=== PATIENT | female | born 1955 | race Caucasian/White ===

== ENCOUNTER 2018-05-20 09:22 | Emergency (ER) | payer OTHER, SELFPAY ==
[2018-05-20 09:22] VITALS: BP 162/95; PULSE 76; RESP 18; TEMP 36.3; O2SAT 98; BMI 28.6
--- NOTE | 2018-05-20 09:37 | CT_ITS ---
STUDY: CT BRAIN WITHOUT CONTRAST REASON FOR EXAM: Female, 62 years old. Visual changes in the right eye. Hypertension. RADIATION DOSAGE (If Supplied By Facility): CTDIvol = ( 60.81 ) mGy, DLP = ( 998.67 ) mGycm TECHNIQUE: Transaxial CT imaging of the brain was performed without administration of intravenous contrast material. Individualized dose optimization techniques were used for this CT. COMPARISON: None. FINDINGS: Normal soft tissue structures. There is 9.3 mm by 8mm ossification arising from the inner plate of the left posterior parietal bone. This may represent either an exostosis or possible calcified meningioma. No surrounding edema or mass effect is seen. Normal size ventricles and extra-axial spaces for the patient's age. Normal white matter tracts of the cerebral hemispheres. Normal basal ganglia and thalami. Normal brainstem. Normal cerebellum. There is no intracranial hemorrhage. There are no findings of an acute ischemic infarction. Atherosclerotic calcification of the cavernous portions of the internal carotid arteries bilaterally. Normal visualized paranasal sinuses. CT/Brain/Head without Contrast IMPRESSION: 9.3 mm x 8 mm ossification arising from the inner plate of the left posteroparietal bone as described. This may represent a calcified meningioma. No other abnormality is seen. Electronically Signed: Brent Garcia MD at 10:35 EST , Service support ,
--- NOTE | 2018-05-20 09:37 | EKG12_ITS ---
Test Reason : HYPERTENSION Blood Pressure : / mmHG Vent. Rate : 067 BPM Atrial Rate : 067 BPM P-R Int : 130 ms QRS Dur : 082 ms QT Int : 384 ms P-R-T Axes : 045 029 028 degrees QTc Int : 405 ms Normal sinus rhythm Normal ECG Confirmed by YANNICK OCONNOR, BONG ([id number]), offline editor ASIYA KOHLER ([id number]) on 05/22/2018 3:09:47 PM Referred By: ALBERTO Confirmed By:BONG LANIER MD
--- NOTE | 2018-05-20 09:37 | RAD_ITS ---
STUDY: X-RAY CHEST REASON FOR EXAM: Female, 62 years old. Hypertension. TECHNIQUE: Single AP portable view of the chest. COMPARISON: Comparison is made with prior study dated September 06, 2014. FINDINGS: EKG electrodes are seen. The lungs are clear and expanded. Scattered calcified granulomas. There is no demonstrated pleural abnormality. Normal size heart. Normal mediastinum and ann. Normal visualized pulmonary arteries. Normal visualized aortic arch and descending thoracic aorta. Normal visualized thoracic spine. Normal visualized ribs, clavicles, and shoulders. There is no demonstrated abnormality of the visualized soft tissue structures of the upper abdomen. RAD/Chest 1 View IMPRESSION: Normal x-ray examination of the chest. Electronically Signed: Brent Garcia MD at 10:57 EST , Service support ,
[2018-05-20 09:48] VITALS: O2SAT 98
[2018-05-20 09:58] LABS: Absolute Lymphocyte Count 1.49 X10^3/ul (0.83-4.51); Absolute Neutrophil Count 1.6 X10^3/uL (2.0-7.7); Basophil# 0.01 X10^3/uL; Basophil% 0.3 % (0-1); Eosinophils% 2.8 % (0-5); Hematocrit 44.1 % (37-47); Hemoglobin 14.6 g/dl (12.0-15.0); Lymphocyte # 1.49 X10^3/ul (4.0); Lymphocyte % 41.3 % (19-41); Mean Corp Hgb Conc 33.1 g/gl (32-36); Mean Corpuscular Hgb 28.9 pg (27.0-32.0); Mean Corpuscular Volume 87.3 fL (81-99); Mean Platelet Vol. 9.5 fl (6.2-12.0); Monocyte# 0.37 X10^3/uL; Monocyte% 10.2 % (0-10); Neutrophil # 1.64 X10^3/uL (2.7-7.7); Neutrophil % 45.4 % (47-70); POSITIVE COUNT NO; POSITIVE DIFFERENTIAL NO; POSITIVE MORPHOLOGY NO; Platelet Count 255 K/mm3 (150-450); RBC Distribution Width CV 13.4 % (11.6-14.6); RBC Distribution Width SD 42.4 fl (35.1-43.9); Red Blood Count 5.05 M/mm3 (4.2-5.4); White Blood Count 3.6 K/mm3 (4.4-11.0)
[2018-05-20 10:01] VITALS: BP 142/95; PULSE 68; RESP 14; O2SAT 92
[2018-05-20 10:04] LABS: International Normalized Ratio 1.1; Prothrombin Time (Protime)PT. 14.1 SECONDS (11.7-14.9)
[2018-05-20 10:05] LABS: Partial Thromboplast Time 33.2 Seconds (24.1-36.2)
[2018-05-20 10:05] LABS: Bedside Glucose 98 mg/dL (70-110)
[2018-05-20 10:15] LABS: Anion Gap 11 (5-15); BUN 19 mg/dL (7-18); BUN/Creat Ratio 17.6 RATIO (10-20); Chloride 108 mmol/L (98-107); Creatinine, Serum 1.08 mg/dL (0.55-1.02); EST Glomerular Filtration Rate 55 mL/min (>60); Est Glom Filt Rate - Afr Amer 66 mL/min (>60); Estimated Creatinine Clearance 45.82 ml/min; Glucose 128 mg/dL (74-106); Potassium 3.6 mmol/L (3.5-5.1); Sodium Level 144 mmol/L (136-145)
--- NOTE | 2018-05-20 10:52 | ED.VISSUMM ---
- ER Visit Summary Date of Service: 05/20/18 Chief Complaint: Blood pressure high History of Present Illness: The patient is a 62 F with elevated blood pressures for 3 days. Her maximum systolic blood pressure was 152 and her maximum diastolic pressure was 102. She has no history of high blood pressure and takes no medication for high blood pressure. She was encouraged to come in to be evaluated today because she is also had a spot in her right thigh. She says this affects her right eye only and that her left eye is normal. She has a dark spot in her right visual field in the right eye. She has no prior history of this. This has been going on for about 4 days. Denies headaches. Denies trauma. Denies any other neurologic symptoms. Denies chest pain or shortness of breath. Denies blood thinner use. Physical Examination: Blood pressure 162/95. Otherwise vitals unremarkable. Afebrile. Gross exam shows mild ptosis on the right side. Pupils are round and reactive, symmetric. Funduscopic exam was limited as she was not dilated, and she was moving frequently. I did see a dark spot on her right neck, but could not get it completely and focus and then could not find it again because of patient movement. Her visual acuity was 20/40 in the right and left eyes individually and 20/30 bilaterally. Cranial nerves otherwise unremarkable. Good strength and sensation and cerebellar testing. Test Results: EKG showed sinus rhythm at a rate of 67. Chest x-ray was read by me. It was unremarkable. Official read is pending. CT brain showed a left posterior calcified meningioma. White count 3.6, chloride 108, glucose 128, BUN 19, creatinine 1.08. Troponin level. Coags normal. Emergency Department Course and Treatment: Visual acuity was done as above. Patient was monitored. I tried to reexamine her eyes several times, but had difficulty because of motion and lack of dilation. Her workup was all fairly unremarkable. Repeat blood pressure was 125 systolic. I do not believe that her pressures have been high enough to cause visual changes, but she might have some chronic hypertension which has affected her eye. I spoke with Dr. Pope and he has appointments available to see the patient later today. She should call the office and she can be seen around 1 PM. She should return for any new or worsening symptoms, visual cuts, speech changes, facial droop, weakness. Return for chest pain or shortness of breath. Otherwise follow-up with ophthalmology and her primary care doctor. Treatment Plan: As above Disposition: Discharge Impression: 1. Right eye vision changes 2. High blood pressure This note was generated with [employer] dictation software. It may contain incorrect words, spelling, and punctuation that were not noted in review of the chart prior to signing ED Disposition - Plan for ED Patient: Chief Complaint: Hypertension Referrals: Elza White MD [Primary Care Provider] -
--- NOTE | 2018-05-20 10:57 | ED.DEP ---
ED Disposition - Plan for ED Patient: Chief Complaint: Hypertension Instructions: ED Hypertension Poss Referrals: Elza White MD [Primary Care Provider] - Wilman Pope MD [STAFF PHYSICIAN] - (call for an appointment to be seen today )
[2018-05-20 11:05] VITALS: BP 147/91; PULSE 63; RESP 18; O2SAT 94
== END 2018-05-20 11:06 | disposition home or self-care (01) ==
PROVIDERS: Emergency Provider Emergency Medicine; Family Provider Internal Medicine; PCP Internal Medicine
DX: H53.8 Other visual disturbances (principal); I10 Essential (primary) hypertension; H02.401 Unspecified ptosis of right eyelid; D32.9 Benign neoplasm of meninges, unspecified
CPT/HCPCS: 70450; 71045; 80048; 82962; 84484; 85025; 85610; 85730; 93005; 99285; A4216

== ENCOUNTER → 2023-03-12 | Outpatient (CLI) | payer MEDICARE, MEDICAID, SELFPAY ==
[2023-03-12 17:05] LABS: Absolute Lymphocyte Count 1.86 X10^3/uL (0.83-4.51); Absolute Neutrophil Count 3.3 X10^3/uL (2.0-7.7); Basophil# 0.02 X10^3/uL; Basophil% 0.3 % (0-1); Eosinophils% 1.7 % (0-5); Hematocrit 44.9 % (37-47); Hemoglobin 14.4 g/dL (12.0-15.0); Lymphocyte # 1.86 X10^3/ul (0.83-4.51); Mean Corp Hgb Conc 32.1 g/dL (32-36); Mean Corpuscular Hgb 28.3 pg (27.0-32.0); Mean Corpuscular Volume 88.4 fL (81-99); Mean Platelet Vol. 10.3 fl (6.2-12.0); Monocyte# 0.55 X10^3/uL; Monocyte% 9.5 % (0-10); NRBC Flagged by Analyzer 0 % (0-5); Neutrophil # 3.27 X10^3/uL (2.7-7.7); Neutrophil % 56.2 % (47-70); Platelet Count 262 K/mm3 (150-450); RBC Distribution Width CV 13.2 % (11.6-14.6); RBC Distribution Width SD 43.2 fl (35.1-43.9); Red Blood Count 5.08 M/mm3 (4.2-5.4); White Blood Count 5.8 K/mm3 (4.4-11.0)
[2023-03-12 17:15] LABS: ALB/GLOB Ratio 0.8 RATIO (0.9-2.4); AST(SGOT) 33 U/L (15-37); Alanine Aminotransfer ALT/SGPT 61 U/L (13-56); Albumin, Serum 3.5 g/dL (3.2-5.0); Alkaline Phosphatase 90 U/L (45-117); Anion Gap 8 (5-15); BUN 17 mg/dL (7-18); BUN/Creat Ratio 17.5 RATIO (10-20); Calcium,Total 8.8 mg/dL (8.5-10.1); Chloride 105 mmol/L (98-107); Cholesterol 203 mg/dL (200); Creatinine, Serum 0.97 mg/dL (0.55-1.02); EST Glomerular Filtration Rate 61 mL/min (>60); Est Glom Filt Rate - Afr Amer 74 mL/min (>60); Globulin 4.2 g/dL (2.2-4.2); Glucose 101 mg/dL (74-106); High Density Lipoprotein 55 mg/dL; Potassium 3.9 mmol/L (3.5-5.1); Protein, Total 7.7 g/dL (6.4-8.2); Sodium Level 141 mmol/L (136-145); Triglycerides 99 mg/dL; Very Low Density Lipoprotein 20 mg/dL (5-40)
== END | disposition home or self-care (01) ==
LOC: BIMLAB 14:56
PROVIDERS: PCP Internal Medicine; Referring Provider Internal Medicine; Visit Provider Internal Medicine
DX: I10 Essential (primary) hypertension (principal)
CPT/HCPCS: 36415; 80053; 80061; 85025

== ENCOUNTER → 2023-04-24 | Outpatient (CLI) | payer MEDICARE, MEDICAID, SELFPAY ==
--- NOTE | 2023-04-24 14:15 | BI_ITS ---
MAMMOGRAPHY - BILATERAL SCREENING REASON FOR EXAM: Female, 67 years old. Routine annual screening examination. PERTINENT HISTORY: Sister with breast cancer. TECHNIQUE: Digital bilateral breast rosario (3D mammographic acquisition) in the CC and MLO projections. 2-D mediolateral oblique (MLO) and craniocaudad (CC) views of both breasts were obtained. CAD: Full Field Digital Mammography with Computer Added Detection was performed. COMPARISON: Comparison is made with prior outside examination dated March 22, 2019. FINDINGS: Breast Composition: The breasts are heterogeneously dense, which may obscure small masses. There are no dominant masses or suspicious calcifications. Stable small benign-appearing bilateral axillary lymph nodes. No other significant abnormalities are identified. There has been no significant change since the prior study. BI/SCRN MAMM (CAD)W/ROSARIO BILAT IMPRESSION: Stable bilateral screening mammogram. Yearly follow-up mammogram recommended. (A) ASSESSMENT CATEGORY: BIRADS Category 2: Benign. A letter regarding these results will be sent to the patient by the facility within 30 days. Approximately 10% of breast cancers are not detected by mammography. A normal mammogram should not delay biopsy of a clinically suspicious abnormality. [id number] Electronically Signed: Brent Garcia MD at 14:26 EST ,
--- NOTE | 2023-04-24 14:20 | BD_ITS ---
STUDY: DUAL ENERGY X-RAY ABSORPTIOMETRY / DXA REASON FOR EXAM: Female, 67 years old. Post Menopausal TECHNIQUE: Bone Mineral Density (BMD) measurements of lumbar spine and bilateral hips were obtained. COMPARISON: None. FINDINGS: Lumbar Spine (L1-L4): g/cm2 (0.780) / T-score (-2.4) / Z-score (-0.6) Findings are suggestive of osteopenia with a high fracture risk. Left Femur Total: g/cm2 (0.867) / T-score (-0.6) / Z-score (0.6) Left Femoral Neck: g/cm2 (0.661) / T-score (-1.7) / Z-score (-0.1) Right Femur Total: g/cm2 (0.934) / T-score (-0.1) / Z-score (1.2) Right Femoral Neck: g/cm2 (0.748) / T-score (-0.9) / Z-score (0.6) BD/Dexa Bone Density Study IMPRESSION: The patient is considered osteopenic as outlined below according to World Markos Organization (WHO) criteria with a high fracture risk. Reference Information: The T-score is the number of standard deviations above or below the standard which is normal for young adults at their peak bone mineral density. The World Health Organization (WHO) interprets the T-scores as follows: Above -1 Normal bone density Between -1 and -2.5 Osteopenia Equal to / or below -2.5 Osteoporosis As a practical clinical guideline, osteopenia may be graded as follows: Mild -1 through -1.5 Moderate -1.6 through -2.0 Severe -2.1 through -2.4 The Z-score is the number of standard deviations above or below age-matched controls. A Z-score of less than -1.5 would be considered abnormal. References: 1. NIH Osteoporosis and Related Bone Diseases www osteo.org 2. International Society for Clinical Densitometry www iscd.org 3. National Osteoporosis Foundation www nof.org Electronically Signed: Brent Garcia MD at 15:17 EST ,
== END | disposition home or self-care (01) ==
LOC: OPBD 14:15
PROVIDERS: PCP Internal Medicine; Referring Provider Internal Medicine; Visit Provider Internal Medicine
DX: Z12.31 Encounter for screening mammogram for malignant neoplasm of breast (principal); Z80.3 Family history of malignant neoplasm of breast; Z78.0 Asymptomatic menopausal state
CPT/HCPCS: 77063; 77067; 77080

== ENCOUNTER 2023-06-05 15:59 | Emergency (ER) | payer MEDICARE, MEDICAID, SELFPAY ==
[2023-06-05 16:00] VITALS: BP 151/98; PULSE 120; RESP 18; TEMP 36.4; O2SAT 98; BMI 32.9
--- NOTE | 2023-06-05 16:49 | EX.ED.DYSGE1 ---
HPI <PIPPA Schofield - Last Filed: 06/05/23 18:30> History of Present Illness Chief Complaint: Fall Narrative Narrative: Patient is a 67-year-old female with no significant medical history presents to the emergency department after mechanical fall backwards towards 2 steps. Patient fell turning her body, landing on her knees as well as her right hand. Patient has pain to both knees as well as her right hand and wrist. She denies any head or neck injury. Denies any alcohol abuse. Patient states this happened approximately 45 minutes ago. PFSH <PIPPA Schofield - Last Filed: 06/05/23 18:30> [facility] Medical History (Updated 06/05/23 @ 19:[address] Unruly Her MD) Back pain Colon cancer screening Diverticulitis Head ache Health care maintenance Hypertension Vision problems Home Medications multivitamin with folic acid 400 mcg tablet (Thera) 1 tab PO DAILY 05/20/18 [History Last Taken Unknown] turmeric 400 mg capsule 400 mg PO DAILY 05/20/18 [History Last Taken Unknown] vit B complex-folic acid 400 mcg-herbal complex no.288 2.5 mg tablet (Balanced B-50 (with alfalfa blend)) 1 ea PO DAILY 05/20/18 [History Last Taken Unknown] lrbwdul-kdhwgihqc-kgcw 333 mg-133 mg-5 mg tablet tab PO 02/28/23 [History Last Taken Unknown] govana PO 02/28/23 [History Last Taken Unknown] vision formula 50 + PO 02/28/23 [History Last Taken Unknown] Allergy/AdvReac Type Severity Reaction Status Date / Time chocolate flavor Allergy Mild Hives Verified 06/05/23 16:00 orange Allergy Mild Hives Verified 06/05/23 16:00 Family History (Updated 05/23/23 @ 15:11 by Moni Collado) Father Alcoholism Acute arthritis Sister Cancer breast, cervical Hypertension Aunt Cancer cervical, Diabetes Colon cancer Mother Diabetes Grandfather Diabetes CVA (cerebral vascular accident) Surgical History (Updated 05/23/23 @ 15:11 by Moni Collado) Hx of colonoscopy Tubal ligation status Social History (Updated 05/23/23 @ 15:12 by Moni Colaldo) current occupational status: retired Smoking Status: Never smoker alcohol intake: never substance use type: does not use frequency: 3-4 times per week ROS <PIPPA Schofield - Last Filed: 06/05/23 18:30> ROS ED ROS Narrative Constitutional: Negative for fever, chills, weight loss, weakness Eyes: Negative for vision loss, vision change, double vision ENT: Negative for any sore throat, ear pain, congestion Cardiovascular: Negative for any chest pain, tightness, palpitations Respiratory: Negative for any cough, sputum production, hemoptysis, dyspnea, dyspnea on exertion, orthopnea Gastrointestinal: Negative for any abdominal pain, nausea, vomiting, diarrhea, constipation, blood in stool, blood in vomit : Negative for any urinary frequency, dysuria, retention, blood in urine Muscle skeletal: Negative for any neck pain, back pain. Positive bilateral knee pain, right wrist pain Neurological: Negative for any headache, syncope, dizziness Skin: Negative for any rashes, itching, abrasions, lacerations Psychiatric: Negative for any depression, anxiety, stress, suicidal ideation, homicidal ideation Hematologic: Negative for any excessive bruising, easy bleeding EXAM <PIPPA Schofield - Last Filed: 06/05/23 18:30> Physical Exam Narrative Exam Narrative: Vital signs reviewed. Patient appears to be in slight discomfort. HEET: Head normocephalic atraumatic, TMs clear bilaterally. Posterior pharynx is clear, moist mucous membranes. Nares clear bilaterally. Pupils equal round reactive to light. Negative for any hemotympanum or septal hematoma. Neck: Supple with no lymphadenopathy or tenderness. No signs of meningismus. Cardiac: Regular rate and rhythm no murmurs gallops or rubs, equal peripheral pulses bilaterally. Respiratory: Lungs clear to auscultation bilaterally. No chest tenderness. Abdomen: Soft, nontender, nondistended. No abdominal bruit or pulsatile masses. No hepatosplenomegaly Extremities: Patient's right knee does show some ecchymosis, edema to the inferior patella, pain on palpation. Intact extensor mechanism. However pain on palpation to the proximal tibial head. Patient's left knee appears less injured however does have pain with patella. Patient's right wrist has some edema, ecchymosis along the radial aspect just below the thumb joint. Worsening pain with flexion extension. +2 radial pulse. Neuro: Cranial nerves II through XII intact, no focal neurological deficits. Skin: Clean dry and intact with no rash, purpura, petechiae, vesicles or pustules. Backs/flank: No CVA tenderness, no midline spinal tenderness, no deformity. Psych: Normal mood and affect. No SI, HI or acute psychosis. Const Vital Signs: 06/05/23 16:00 06/05/23 16:50 Temperature 97.5 F L Temperature Source Temporal Pulse Rate 120 H Respiratory Rate 18 Respiratory Effort Normal Respiratory Depth Normal Respiratory Pattern Normal Blood Pressure 151/98 H Blood Pressure Mean 115 Pulse Ox 98 Oxygen Delivery Method Room Air <Dr. Unruly Her MD - Last Filed: 06/05/23 19:03> Physical Exam Const Vital Signs: 06/05/23 16:00 06/05/23 16:50 Temperature 97.5 F L Temperature Source Temporal Pulse Rate 120 H Respiratory Rate 18 Respiratory Effort Normal Respiratory Depth Normal Respiratory Pattern Normal Blood Pressure 151/98 H Blood Pressure Mean 115 Pulse Ox 98 Oxygen Delivery Method Room Air MDM <PIPPA Schofield - Last Filed: 06/05/23 18:30> MDM Radiography Diagnostic Testing: Clinical Impression(s) from Imaging Studies Knee X-Ray 06/05/23 17:10 IMPRESSION: Mild degenerative change. No acute fracture or other significant bony pathology Electronically Signed: Wilman Bravo MD at 17:54 EST Reading Location ID and State: [address] [place] [address] Tel [phone], Service support , Knee X-Ray 06/05/23 17:10 IMPRESSION: Degenerative changes. No acute fracture or other significant bony pathology Electronically Signed: Wilman Bravo MD at 17:51 EST Reading Location ID and State: [facility] / [place] Tel [phone], Service support , Wrist X-Ray 06/05/23 17:10 IMPRESSION: Mild degenerative change. No acute fracture or other significant bony pathology Electronically Signed: Wilman Bravo MD at 17:52 EST , Treatment and Re-Evaluation :: Differential diagnosis includes however is not limited to: Patellar fracture, tibial fracture, knee sprain, wrist sprain, distal radial fracture. Patient appears to be in no obvious respiratory distress, patient does appear to be in slight pain from the fall. She will be given oral Percocet. Patient will receive x-rays 4 view bilateral knees. Wrists x-ray. All radiologic examinations were read, reviewed by the emergency department attending. From these reads, a plan of care will be put in place. Patient was given Percocet, patient did receive x-rays of her knees, as well as right wrist.Patient's x-ray of both knees was negative for any acute process. This was inter by the ER physician. X-ray of the wrist showed mild degenerative changes, no acute fracture. At this time, patient be diagnosed with fall, bilateral knee contusions, right wrist sprain. <Dr. Unruly Her MD - Last Filed: 06/05/23 19:03> [facility] Narrative Medical decision making narrative: I have personally performed a face to face assessment of the patient and have reviewed the JUNAID Note. I performed a substantive portion of the visit including all aspects of the following. My ocampo findings include: History is [67-year-old female tripped and fell at home landing on hard tile injuring both knees and her right wrist. Did not hit her head. No LOC. No blood thinners. Denies recent illness. Denies other complaints.] Exam is [well-appearing 67-year-old female vital signs stable afebrile. H EENT exam unremarkable atraumatic. Pupils round reactive light. Nontender. Neck nontender. Back and spine nontender. No signs of trauma. Lungs clear. Heart regular rhythm rate about 100 no murmur. Chest wall and ribs nontender. Abdomen soft nontender. Moving all 4 extremities. No deformity. Tenderness right wrist and dorsal metacarpals. No deformity. Able to do flexion extension. Able to open close her hand. Normal sensation. Forearm, elbow and upper arm are nontender. Left upper extremity unremarkable. Both lower extremities she has contusions and mild bruising to both knees. She is able to flex and extend both knees. Ligaments Intact. No significant effusions. Dorsi and plantarflexion intact. Neurologically she is awake and alert no focal motor deficits.] Medical Decision Making [x-rays of the right wrist and both knees show chronic changes no acute process. Patient is comfortable being discharged home. Ice and Tylenol.] Other additions or changes: [None] History & Record Review Discussion w/independent historian: Patient and Family Radiography Diagnostic Testing: Clinical Impression(s) from Imaging Studies Knee X-Ray 06/05/23 17:10 IMPRESSION: Mild degenerative change. No acute fracture or other significant bony pathology Electronically Signed: Wilman Bravo MD at 17:54 EST , Knee X-Ray 06/05/23 17:10 IMPRESSION: Degenerative changes. No acute fracture or other significant bony pathology Electronically Signed: Wilman Bravo MD at 17:51 EST , Wrist X-Ray 06/05/23 17:10 IMPRESSION: Mild degenerative change. No acute fracture or other significant bony pathology Electronically Signed: Wilman Bravo MD at 17:52 EST , Right knee x-ray 4 views interpreted myself and radiologist shows no acute abnormality. No fracture no dislocation. Left knee x-ray 4 views interpreted both by myself and the radiologist shows no acute abnormality. Chronic changes. No fracture or dislocation. Right wrist x-ray 3 views are by myself and the radiologist shows no acute abnormality. No fracture or dislocation. Discharge Plan Triage Chief Complaint: Fall ED Midlevel Provider: Jeb Temple ED Provider: Unruly Her Dx/Rx/DC Orders Clinical Impression: Contusion of knee, Fall, Right wrist sprain, Contusion of knee, left, Contusion of knee, right Instructions: Bruises (Contusions), ED Contusion, Lower Extremity, ED Wrist Sprain Prescriptions: No Action govana PO Patient Comments: 16 fruits sdavoll-[id number]-eeaj 333-133-5 mg tablet PO vision formula 50 + PO multivitamin with folic acid [Thera] 1 TABLET tablet 1 tab PO DAILY turmeric 400 MG capsule 400 mg PO DAILY vit B complx-folic ac-herb 288 [Balanced B-50 (with alfalfa)] 1 EACH tablet 1 ea PO DAILY Primary Care Provider: Alcira Ponce Referrals: Alcira Ponce MD [Primary Care Provider] - 1 Week if not improving Activity Restrictions/Additional Instructions: Ice and elevate the right wrist to decrease pain and swelling. Ice to both knees. Tylenol for pain. This should progressively improve. Your x-rays did not show any broken bones. If the pain is not improving over the next week follow-up with your doctor sometimes had to get a repeat x-ray. Disposition Disposition: Home, Self Care
[2023-06-05] MEDS: Oxycodone/Apap 5/325 Tablet PO (16:52)
--- NOTE | 2023-06-05 17:10 | RAD_ITS ---
STUDY: X-RAY - RIGHT KNEE REASON FOR EXAM: Female, 67 years old. fall TECHNIQUE: 4 view(s) of the knee. COMPARISON: None. FINDINGS: Normal visualized distal femur. Normal visualized proximal tibia and fibula. Normal proximal tibiofibular articulation. Narrowed medial femorotibial compartment. Normal lateral femorotibial compartment. Normal patellofemoral articulation. Mild suprapatellar spurring The soft tissue structures are unremarkable. RAD/Knee 4 or More Views IMPRESSION: Mild degenerative change. No acute fracture or other significant bony pathology Electronically Signed: Wilman Bravo MD at 17:54 EST Reading Location ID and State: [address] [place] [address] Tel , Service support ,
--- NOTE | 2023-06-05 17:10 | RAD_ITS ---
STUDY: X-RAY - LEFT KNEE REASON FOR EXAM: Female, 67 years old. FALL TECHNIQUE: 4 view(s) of the knee. COMPARISON: None. FINDINGS: Normal visualized distal femur. Normal visualized proximal tibia and fibula. Normal proximal tibiofibular articulation. Narrowed medial femorotibial compartment with minor subchondral cystic changes. Normal lateral femorotibial compartment. Normal patellofemoral articulation. The soft tissue structures are unremarkable. RAD/Knee 4 or More Views IMPRESSION: Degenerative changes. No acute fracture or other significant bony pathology Electronically Signed: Wilman Bravo MD at 17:51 EST Reading Location ID and State: [address] [place] [address] Tel , Service support ,
--- NOTE | 2023-06-05 17:10 | RAD_ITS ---
STUDY: X-RAY - RIGHT WRIST REASON FOR EXAM: Female, 67 years old. fall TECHNIQUE: 3 view(s) of the wrist were obtained. COMPARISON: None. FINDINGS: Normal visualized distal radius and ulna. Narrowed radiocarpal articulation. Normal distal radioulnar articulation. Normal carpal bones. Normal carpal articulations. Normal carpometacarpal articulation of the thumb. Normal second through fifth carpometacarpal articulations. Normal visualized metacarpal bones. The soft tissue structures are unremarkable. RAD/Wrist min 3 Views IMPRESSION: Mild degenerative change. No acute fracture or other significant bony pathology Electronically Signed: Wilman Bravo MD at 17:52 EST ,
[2023-06-05 19:10] VITALS: BP 134/67; PULSE 77; RESP 18; TEMP 36.1; O2SAT 98
== END 2023-06-05 19:11 | disposition home or self-care (01) ==
PROVIDERS: Emergency Provider Emergency Medicine; PCP Internal Medicine; Visit Provider Emergency Medicine
DX: S80.02XA Contusion of left knee, initial encounter (principal); S63.91XA Sprain of unspecified part of right wrist and hand, initial encounter; S80.01XA Contusion of right knee, initial encounter; I10 Essential (primary) hypertension; W01.10XA Fall on same level from slipping, tripping and stumbling with subsequent striking against unspecified object, initial encounter
CPT/HCPCS: 73110; 73564; 99282

== ENCOUNTER 2023-07-08 12:52 | Day surgery (SDC) | payer MEDICARE, MEDICAID, SELFPAY ==
[2023-07-08 13:13] VITALS: BP 162/77; PULSE 95; RESP 18; TEMP 36.6; O2SAT 96; BMI 32.1
[2023-07-08] MEDS: Lactated Ringers 1,000 ML 15 ML IV (13:23)
--- NOTE | 2023-07-08 15:51 | HP.PCM_ITS ---
HPI - General General Date of Admission: 07/08/23 Date of Service: 07/08/23 Chief Complaint: Family history of colon cancer HPI Narrative ANGELICA WILBURN, is a 68 F who presents today for screening colonoscopy. She had a colonoscopy back in 2019 which was normal. She has a strong family history of colon cancer in multiple family members. She does not have any personal history of colon cancer. She is not any chest pain or shortness of breath. She denies any nausea vomiting diarrhea. She does not take any medicines on a daily basis. Overall she is in very good health. [facility] Medical History (Updated 07/04/23 @ 09:20 by Louisa Rodas) Back pain Colon cancer screening Fibromyalgia Health care maintenance History of pain when walking Hypertension Leg cramps Non-smoker Post-menopausal Home Medications multivitamin with folic acid 400 mcg tablet (Thera) 1 tab PO DAILY 05/20/18 [History Last Taken Unknown] turmeric 400 mg capsule 400 mg PO DAILY 05/20/18 [History Last Taken Unknown] vit B complex-folic acid 400 mcg-herbal complex no.288 2.5 mg tablet (Balanced B-50 (with alfalfa blend)) 1 ea PO DAILY 05/20/18 [History Last Taken Unknown] [id number] 333 mg-133 mg-5 mg tablet 1 tab PO DAILY 02/28/23 [History Last Taken Unknown] vision formula 50 + 1 tab PO DAILY 02/28/23 [History Last Taken Unknown] Allergy/AdvReac Type Severity Reaction Status Date / Time chocolate flavor Allergy Mild Hives Verified 07/08/23 13:13 orange Allergy Mild Hives Verified 07/08/23 13:13 Family History Father Alcoholism Acute arthritis Sister Cancer breast, cervical Hypertension Aunt Cancer cervical, Diabetes Colon cancer Mother Diabetes Grandfather Diabetes CVA (cerebral vascular accident) Surgical History (Updated 07/04/23 @ 09:20 by Louisa Rodas) Hx of colonoscopy Hx of tubal ligation Hx of wisdom tooth extraction Social History current occupational status: retired Smoking Status: Never smoker alcohol intake: never substance use type: does not use frequency: 3-4 times per week ROS Review of Systems ROS Unobtainable: other Constitutional Constitutional: Denies fatigue, fever(s), poor appetite, weight gain or weight loss ENT HEENT: Denies mouth lesions Cardiovascular Cardiovascular: Denies abdominal bloating, abdominal edema or abdominal pain Respiratory/Chest Respiratory/Chest: Denies change in mental status, change in phlegm color, chest congestion or chest tightness Gastrointestinal Gastrointestinal: Denies belching, bloating, change in bowel habits, change in stool character, chewing difficulty, coffee ground emesis, constipation, cramping, diarrhea, dyspepsia, dysphagia, early satiety, excessive flatus, fecal incontinence, heartburn, hematemesis, hematochezia, hemorrhoids, loose stools, melena, nausea, odynophagia, rectal bleeding, tenesmus, vomiting or weight changes Genitourinary Genitourinary: Denies abdominal discomfort, burning urination or itching Musculoskeletal Musculoskeletal: Reports as per HPI; Denies muscle weakness or myalgias Integumentary Integumentary: Denies jaundice Neurologic Neurologic: Denies lack of coordination or weakness Psychiatric Psychiatric: Denies confusion, depression, memory loss, mood swings, paranoia or suicidal ideation Endocrine Endocrinology: Denies systems reviewed and no addt'l complaints, except as documented Hematologic/Lymphatic Hematologic/Lymphatic: Denies anemia, easy bleeding, easy bruising or lymphadenopathy Allergic/Immunologic Allergic/Immunologic: Denies systems reviewed and no addt'l complaints, except as documented Vital Signs Vital Signs Vital Signs: 07/08/23 13:13 07/08/23 13:13 Temperature 97.8 F Temperature Source Temporal Pulse Rate 95 Respiratory Rate 18 Respiratory Pattern Normal Blood Pressure 162/77 H Blood Pressure Mean 105 Blood Pressure Source Monitor Blood Pressure Position Sitting Blood Pressure Location Left Arm Pulse Ox 96 Oxygen Delivery Method Room Air Weight Weight: 180 lb 15.992 oz Body Mass Index (BMI) 32.1 Physical Exam Const alert General Appearance: cooperative Orientation / Consciousness: oriented to person HEENT hearing grossly normal bilaterally Head and Scalp: normal to inspection Face and Sinus: face symmetric Nose: external nose normal Mouth: oral and palatal mucosa normal Eyes conjunctivae normal General Eye: normal appearance of both eyes Neck full ROM General: normal visual inspection Lymph Lymphatic: no lymphadenopathy noted Chest inspection of chest normal and palpation of chest normal Chest: symmetrical chest wall rise Resp normal respiratory effort Effort and Inspection: able to speak in complete sentences Cardio regular rate GI non-distended Percussion: normal to percussion Rectal Exam: deferred Neuro Speech: speech normal Gait (Neuro): normal gait Assessment & Plan Assessment/Plan (1) Encounter for screening for malignant neoplasm of colon: PLAN: She was explained alternatives, risk, benefits including not withstanding bleeding, infection, sepsis, perforation, need for emergent surgery and . She will have an an ASA of 3.
[2023-07-08 16:24] VITALS: BP 129/77; BP 162/77; PULSE 87; RESP 18; TEMP 36.4; O2SAT 95
--- NOTE | 2023-07-08 16:25 | OP.CCLET_ITS ---
07/08/2023 Alcira Ponce MD [address] [place] [address] [place] [address] Re : Colonoscopy procedure for [facility] Dear Dr. Ponce This procedure was performed on Saturday, July 08, 2023. My impressions and recommendations are as follows: Impressions : - Diverticulosis in the recto-sigmoid colon, in the sigmoid colon and in the descending colon. - Non-bleeding thrombosed external and internal hemorrhoids. - The examination was otherwise normal on direct and retroflexion views. - No specimens collected. Recommendations : - Discharge patient to home. - Resume previous diet. - Continue present medications. - Repeat colonoscopy in 5 years for surveillance. My findings are described in the full procedure note, which is enclosed. If I can be of further assistance, please feel free to contact me at . Sincerely, Meliton Friend, 07/08/2023 4:24:23 PM This report has been signed electronically.
--- NOTE | 2023-07-08 16:25 | OP.COLON_ITS ---
Patient Name: Yana Corey Procedure Date: 07/08/2023 3:55 PM Date of : 1955 Age: 68 Procedure: Colonoscopy Indications: Screening patient at increased risk: Family history of colorectal cancer in multiple 1st-degree relatives Providers: Meliton Zamora DO Medicines: Monitored Anesthesia Care Patient Profile: This is a 68 year old female. Refer to note in patient chart for documentation of history and physical. Last Colonoscopy: 5 years ago. Complications: No immediate complications. Procedure: Pre-Anesthesia Assessment: - Prior to the procedure, a History and Physical was performed, and patient medications and allergies were reviewed. The patient is competent. The risks and benefits of the procedure and the sedation options and risks were discussed with the patient. All questions were answered and informed consent was obtained. Patient identification and proposed procedure were verified by the physician in the pre-procedure area. Mental Status Examination: alert and oriented. Airway Examination: normal oropharyngeal airway and neck mobility. Prophylactic Antibiotics: The patient does not require prophylactic antibiotics. Prior Anticoagulants: The patient has taken no anticoagulant or antiplatelet agents. ASA Grade Assessment: III - A patient with severe systemic disease. After reviewing the risks and benefits, the patient was deemed in satisfactory condition to undergo the procedure. The anesthesia plan was to use monitored anesthesia care (MAC). Immediately prior to administration of medications, the patient was re-assessed for adequacy to receive sedatives. The heart rate, respiratory rate, oxygen saturations, blood pressure, adequacy of pulmonary ventilation, and response to care were monitored throughout the procedure. The physical status of the patient was re-assessed after the procedure. After I obtained informed consent, the scope was passed under direct vision. Throughout the procedure, the patient's blood pressure, pulse, and oxygen saturations were monitored continuously. The colonoscope was introduced through the anus and advanced to the cecum, identified by appendiceal orifice and ileocecal valve. The colonoscopy was performed without difficulty. The patient tolerated the procedure well. The quality of the bowel preparation was adequate. Scope In: 4:03:31 PM Scope Withdrawal Time 0 hours 7 minutes 59 seconds Scope Out: 4:16:05 PM Total Procedure Duration Time 0 hours 12 minutes 34 seconds Findings: The perianal and digital rectal examinations were normal. Multiple small and large-mouthed diverticula were found in the recto-sigmoid colon, sigmoid colon and descending colon. Non-bleeding thrombosed external and internal hemorrhoids were found during retroflexion. The hemorrhoids were Grade III (internal hemorrhoids that prolapse but require manual reduction). The exam was otherwise without abnormality on direct and retroflexion views. Impression: - Diverticulosis in the recto-sigmoid colon, in the sigmoid colon and in the descending colon. - Non-bleeding thrombosed external and internal hemorrhoids. - The examination was otherwise normal on direct and retroflexion views. - No specimens collected. Recommendation: - Discharge patient to home. - Resume previous diet. - Continue present medications. - Repeat colonoscopy in 5 years for surveillance. Procedure Code(s): --- Professional --- G0105, Colorectal cancer screening; colonoscopy on individual at high risk CPT copyright 2021 [employer]. All rights reserved. The codes documented in this report are preliminary and upon medical biller coder review may be revised to meet current compliance requirements. Meliton Zamora DO 07/08/2023 4:24:23 PM This report has been signed electronically. Number of Addenda: 0 Note Initiated On: 07/08/2023 3:55 PM
[2023-07-08 16:29] VITALS: BP 124/73; BP 162/77; PULSE 89; RESP 18; O2SAT 95
[2023-07-08 16:35] VITALS: BP 129/79; BP 162/77; PULSE 82; RESP 18; O2SAT 96
[2023-07-08 16:39] VITALS: BP 144/97; BP 162/77; PULSE 89; RESP 18; TEMP 37.1; O2SAT 97
[2023-07-08 17:00] VITALS: BP 162/77
== END 2023-07-08 17:17 | disposition home or self-care (01) ==
LOC: EN 12:53 → AC 12:55
PROVIDERS: PCP Internal Medicine; Referring Provider Internal Medicine; Visit Provider Internal Medicine Gastroenterology
PROC: 0DJD8ZZ Inspection of Lower Intestinal Tract, Via Natural or Artificial Opening Endoscopic (ICD-10-PCS; CPT 45378; principal; 2023-07-08 13:55)
DX: Z12.11 Encounter for screening for malignant neoplasm of colon (principal); Z80.0 Family history of malignant neoplasm of digestive organs; K64.2 Third degree hemorrhoids; I10 Essential (primary) hypertension; K57.30 Diverticulosis of large intestine without perforation or abscess without bleeding; Z98.51 Tubal ligation status; K64.5 Perianal venous thrombosis
CPT/HCPCS: 45378; J7120; J2405

== ENCOUNTER → 2023-07-11 | Outpatient (CLI) | payer MEDICARE, MEDICAID, SELFPAY ==
--- NOTE | 2023-07-11 09:35 | RAD_ITS ---
STUDY: X-RAY - RIGHT WRIST REASON FOR EXAM: Female, 68 years old. Ongoing right wrist pain -- scaphoid views TECHNIQUE: 4 view(s) of the wrist were obtained. COMPARISON: Comparison is made with prior study dated June 05, 2023. FINDINGS: Sclerosis of the distal radial metaphysis suggestive of healing distal radial fracture. Normal radiocarpal articulation. Normal distal radioulnar articulation. Normal carpal bones. Normal carpal articulations. Normal carpometacarpal articulation of the thumb. Normal second through fifth carpometacarpal articulations. Normal visualized metacarpal bones. Soft tissue swelling. RAD/Wrist min 3 Views IMPRESSION: Healing transverse fracture of the distal radial metaphysis. Soft tissue swelling. Electronically Signed: Brent Garcia MD at 15:41 EDT ,
== END | disposition home or self-care (01) ==
LOC: RAD 09:34
PROVIDERS: PCP Internal Medicine; Referring Provider Internal Medicine; Visit Provider Internal Medicine
DX: M25.531 Pain in right wrist (principal); W19.XXXA Unspecified fall, initial encounter
CPT/HCPCS: 73110

== ENCOUNTER → 2023-09-12 | Outpatient (CLI) | payer MEDICARE, MEDICAID, SELFPAY ==
[2023-09-12 09:27] LABS: Bacteria 0 SEEN /hpf (None Seen); Mucous, Urine 0 SEEN /hpf (<or=2+); Red Blood Cells-Urine 0 SEEN /hpf (0-5)
[2023-09-12 12:43] LABS: Color, Urine Yellow (Yellow); Glucose, Dipstick Normal (Normal); Ketone-Dipstick Negative (Negative); Leukocyte Esterase-Dipstick 25 /ul (Negative); Nitrite-Dipstick Negative (Negative); Occult Blood-Urine Negative /ul (Negative); Protein-Dipstick 15 mg/dl (Negative); Urine Bilirubin Dipstick Negative (Negative); Urine Clarity Sl. Cloudy (Clear); Urine Urobilinogen Normal (Normal)
[2023-09-12 12:52] LABS: Squamous Epithelial Cells - UA 0-5 SEEN /hpf (5-10); White Blood Cells 0-5 SEEN /hpf (0-5)
== END | disposition home or self-care (01) ==
LOC: LABSPEC 09:24
PROVIDERS: PCP Internal Medicine; Visit Provider Internal Medicine
DX: R39.15 Urgency of urination (principal)
CPT/HCPCS: 81001

== ENCOUNTER 2023-09-24 10:30 | Outpatient (RCR) | payer MEDICARE, MEDICAID, SELFPAY ==
--- NOTE | 2023-08-11 15:47 | HP.OTEVAL ---
Patient's Visit Information Visit Information Visit Information: ANGELICA WILBURN is a 68 year old F, referred to Occupational Therapy by Dr. Modesto Hampton MD, with a diagnosis of right distal radius fx. Date of Evaluation: 08/11/23 Occupational Therapist: Denise Dailey, GLYNN/Tyesha, CHT Subjective Subjective: This 68 year old female was seen for OT eval with dx of right wrist distal radius fx. pt states she had a fall on 2023. Pt states she was moving into her new apt. Pt states she had 6 entry steps- she walked up 2 steps and set the box down- pt states she turned to go back down steps and could feel she was falling- Pt states she was not sure if she had sprain her wrist or broke it. Pt states she did go to the ER. She had x-ray states they could not see fx due to swelling so she went to her family Dr. MCPHERSON (went to on ) gave her a thumb spica brace and was given ROM ex the gave her- was instructed in use of ice. pt states Family did send her to Dr. Hampton. ( pt states she was sick the week after Easter and could not see him until 2023. Pt states states she can go without her brace. pt states she is right handed and struggling with her ROM. Pt states she feels like something is not feeling right in her wrist- at times she states she feels her LF and thumb feels numb. pt states she wears the wrist brace only during the day. (sleeping in her lift chair) pt states she is retired. ADLs Comments: pt states she lives alone pt states she is doing everything with her left hand- pt states she has not used her right hand due to pain with ROM. pt states she is doing all cooking and cleaning and laundry is on her floor and see does left handed ( has roller laundry basket) Pain right wrist.: Current Pain Intensity: 4 Pain Intensity Range: 4 and 6 ROM Forearm: right WNL but has pain left WNL Wrist: right 55/40 left 60/45 ROM Comments: pt has pain with ROM Strength Curriculum Director: right 33# left 65# Lateral Pinch: right 14# with pain at base of thumb left 18# Tripod Pinch: right 10# with pain at base of thumb left 13# Sensation Thumb: right 2.83 left 2.83 interpretation Normal sensation Index: right 2.83 left 2.83 interpretation Normal sensation Middle: right 2.83 left 2.83 interpretation Normal sensation Ring: right 2.83 left 2.83 interpretation Normal sensation Little: right 2.83 left 2.83 interpretation Normal sensation Quick DASH-Disab of Arm,Shoulder& Hand Quick DASH Score: 65.9075 Goals Goal:: pt will demo a increase right client project coordinator strength by 15# or greater to return pt to PLOF with ADLs by d.c pt will demo a increase in right lateral and tripod pinch strength by 4# or greater to increase pts IND with ADLS by dc Goal:: pt will demo full ROM with out report of pain greater than 1/10 with use of ADLs by d.c Goal:: pt will report no pain greater than 3/10 with use of right hand with ADLs and IADLs by d/c Goal:: Pt will demo understanding of joint protection and ergonomics when performing BADLs and IADLs by d/c Pt will demo understanding of adaptive Equipment use to decrease stress on joints to allow pt to perform BADSL and IADLS at KOKI level. Goal:: wean out of brace by 30 min at a time increasing to not needing brace in 4 weeks . Rehabilitation General Assessment: Pt demo with painful ROM and weakness of dominate right UE. This limits her IND with all ADLs and IADLs- pt would benefit from skilled OT services 2-3x week for 6 weeks. Today therapist ed, pt on weaning out of brace- and light use as tolerated- along with initiation of AROM ex. pt demo understanding and agree to POC. Rehabilitation Potential: Good Anticipated Interventions Anticipated Interventions: A/AAROM/PROM, Strengthening, Triggerpoint Release, Modalities, Orthoses, Joint Protection/Energy Conservation, Ergonomic Education, Education re assistive Equipment, Education re Diagnosis and Home Program Visit Plan Frequency: 2-3x /Week Duration: 6 Weeks TEXT: Thank you for the opportunity to evaluate your patient. For Medicare and Medicare HMO plans, please review the plan of care and approve it. It will need to be FAXED BACK to us at [phone] for Medicare purposes. Please let me know if there are questions or concerns regarding this plan of care. Physician Signature: Date:
--- NOTE | 2023-09-24 10:54 | HP.OTDCSUM ---
Discharge Summary D/C Summary: It has been my pleasure to treat ANGELICA WILBURN under orders from Dr. Modesto Hampton MD, for the diagnosis of right distal radius fx for a total of 13 visit(s). Please see the following information for a summary of their discharge status. Overall Improvement % Improvement: 60 Objective Objective/Function: pt states supination is still painful at times but mostly on ulnar side of wrist- therapist ed. pt to work on supination with elbow at 130* (has no pain with forearm supination) wrist ROM 55/60 pt states she had pain at times in the center of her hand- points to her DRUJ. ( therapist was unable to recreate pain with palpation) right wood strip block floor installer strength 35# increase from 10# left wood strip block floor installer strength 40# right lateral pinch 14# increase from 8# right tripod pinch 10# increase from 8# pt has met Goals Patient Goals: Regain Mobility, Regain Strength, Decrease Pain and Use Hand/Wrist/Arm Normally Again Goal:: pt will demo a increase right wood strip block floor installer strength by 15# or greater to return pt to PLOF with ADLs by d.c ( goal met) pt will demo a increase in right lateral and tripod pinch strength by 4# or greater to increase pts IND with ADLS by dc ( goal is met) Goal:: pt will demo full ROM with out report of pain greater than 1/10 with use of ADLs by d.c ( progressing) Goal:: pt will report no pain greater than 3/10 with use of right hand with ADLs and IADLs by d/c ( goal met) Goal:: Pt will demo understanding of joint protection and ergonomics when performing BADLs and IADLs by d/c ( goal met) Pt will demo understanding of adaptive Equipment use to decrease stress on joints to allow pt to perform BADSL and IADLS at KOKI level. (goal met) Goal:: wean out of brace by 30 min at a time increasing to not needing brace in 4 weeks .( goal met) Plan Plan: D/C with HEP D/C Information Discharge Comments: pt has made gains with her ROM and functional use of her right hand- she continues to have discomfort in her wrist. pt states she campuzano not let her right wrist pain limit her from doing activities she wants to do. pt is to cont with her HEP as tolerated and return to normal use as able- pt will use k-tape and supported brace as she feels she needs. Pt agrees with her D/C. pt states if she has any further concerns she would contact . d/c sentence: If there are questions or concerns regarding this patient's occupational therapy, please fell free to call me at [phone]. Thank you for the referral of this patient. Sincerely, Denise Dailey, OTR/L, CHT
== END 2023-09-24 13:41 | disposition home or self-care (01) ==
LOC: OT 10:30
PROVIDERS: PCP Internal Medicine; Referring Provider Orthopaedic Surgery Sports Medicine; Visit Provider Orthopaedic Surgery Sports Medicine
DX: S52.501D Unspecified fracture of the lower end of right radius, subsequent encounter for closed fracture with routine healing (principal); M25.531 Pain in right wrist
CPT/HCPCS: 97035; 97110; 97140; 97167; 97530

== ENCOUNTER → 2023-12-15 | Outpatient (CLI) | payer MEDICARE, MEDICAID, SELFPAY ==
[2023-12-15 12:33] LABS: Vitamin D,25 Hydroxy 38.1 ng/mL
[2023-12-15 13:09] LABS: Anion Gap 7 (5-15); BUN 15 mg/dL (7-18); BUN/Creat Ratio 14.6 RATIO (10-20); Calcium,Total 9.5 mg/dL (8.5-10.1); Chloride 107 mmol/L (98-107); Creatinine, Serum 1.03 mg/dL (0.55-1.02); EST Glomerular Filtration Rate 57 mL/min (>60); Est Glom Filt Rate - Afr Amer 69 mL/min (>60); Glucose 102 mg/dL (74-106); Potassium 4.1 mmol/L (3.5-5.1); Sodium Level 140 mmol/L (136-145)
== END | disposition home or self-care (01) ==
LOC: BIMLAB 11:14
PROVIDERS: PCP Internal Medicine; Referring Provider Internal Medicine; Visit Provider Internal Medicine
DX: M85.80 Other specified disorders of bone density and structure, unspecified site (principal)
CPT/HCPCS: 36415; 80048; 82306

== ENCOUNTER → 2024-02-12 | Outpatient (CLI) | payer MEDICARE, MEDICAID, SELFPAY ==
--- NOTE | 2024-02-12 14:27 | RAD_ITS ---
INDICATION: Right index finger mass EXAMINATION/TECHNIQUE: X-RAY - RIGHT HAND XR Fingers Min 2 Views 3 VIEWS COMPARISON: No relevant prior comparison study available FINDINGS: SOFT TISSUES: Soft tissue swelling or mass in the region of the proximal interphalangeal joint of the second finger. No radiopaque foreign body. BONES/JOINTS: No acute fracture or subluxation.. Normal alignment. Preservation of the joint space.. No sclerotic or destructive changes observed. RAD/Finger(s) Min 2 Views IMPRESSION: Focal soft tissue swelling/mass as described above. Electronically Signed: Anish James MD at 15:57 EDT ,
== END | disposition home or self-care (01) ==
PROVIDERS: PCP Internal Medicine; Referring Provider Surgery Plastic and Reconstructive Surgery; Visit Provider Surgery Plastic and Reconstructive Surgery
DX: R22.31 Localized swelling, mass and lump, right upper limb (principal)
CPT/HCPCS: 73140

== ENCOUNTER → 2024-02-23 | Outpatient (CLI) | payer MEDICARE, MEDICAID, SELFPAY ==
--- NOTE | 2024-02-23 10:11 | US_ITS ---
STUDY: SUPERFICIAL ULTRASOUND - PALPABLE LUMP ALONG THE RIGHT INDEX FINGER. REASON FOR EXAM: Female, 68 years old. Rt finger lump TECHNIQUE: A superficial ultrasound was performed with real-time and static stuart-scale imaging. COMPARISON: None. FINDINGS: The palpable lump corresponds to a superficial 1.2 cm x 1 cm x 0.6 cm heterogeneous nodular density. This most likely represents a ganglion cyst. US/Ext Non Vasc Limited/Soft Tiss IMPRESSION: The palpable lump most likely corresponds to a 1.2 cm x 1 cm x 0.6 cm ganglion cyst. Electronically Signed: Brent Garcia MD at 13:37 EST ,
== END | disposition home or self-care (01) ==
LOC: US 10:09
PROVIDERS: PCP Internal Medicine; Referring Provider Surgery Plastic and Reconstructive Surgery; Visit Provider Surgery Plastic and Reconstructive Surgery
DX: R22.9 Localized swelling, mass and lump, unspecified (principal)
CPT/HCPCS: 76882

== ENCOUNTER → 2024-03-15 | Outpatient (CLI) | payer MEDICARE, MEDICAID, SELFPAY ==
--- NOTE | 2024-03-15 15:02 | MRI_ITS ---
STUDY: MRI RIGHT HAND, WITHOUT AND WITH IV CONTRAST REASON FOR EXAM: Female, 68 years old. Right index finger mass. TECHNIQUE: Standardized fat and water weighted pulse sequences were obtained in all 3 orthogonal planes. Following the intravenous administration of 17 cc Clariscan contrast, additional postcontrast imaging was obtained. COMPARISON: None. FINDINGS: There is a well-defined ovoid intermediate T1 and low STIR signal mass in the anterior subcutaneous fat of the second finger at the level of the second PIP joint, abutting the second digit flexor tendon, overall measuring 0.6 cm AP, 1.1 cm transverse, and 1.5 cm craniocaudad. There is mild internal enhancement following IV contrast administration. Intact flexor tendons, without tear or tenosynovitis. Normal visualized annular joel system. Normal volar plates. Normal extensor tendons, without tendon tear, subluxation or tenosynovitis. Normal sagittal bands and dorsal expansion (braun). There are small cysts in the third metacarpal head/neck. Otherwise, normal first through fifth MCP joints. Normal interphalangeal joint of the thumb and second through fifth PIP joints without degenerative change, synovitis, periarticular inflammation or marginal erosions. Normal second through fifth DIP joints without degenerative change, synovitis, periarticular inflammation or marginal erosions. Normal marrow within the metacarpals and visualized phalanges without reactive edema, fracture or subluxation. Normal muscle groups of the thenar and hypothenar eminences. Normal lumbricalis and interosseous muscles. There is no edema or atrophy. MRI/Upper Ext No Joint W/WO Cont IMPRESSION: 0.6 x 1.1 x 1.5 cm well-defined mass in the anterior subcutaneous fat of the second finger at the level of the second PIP joint. 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 However, other soft tissue sarcomas cannot be excluded. Biopsy/excision would be required to establish the definitive histological diagnosis. Small cysts in the third metacarpal head/neck. Electronically Signed: Mando Shepard MD at 11:53 EST ,
[2024-03-15 15:37] LABS: CREATININE FINGERSTICK < 1.0 mg/dL (0.55-1.02)
== END | disposition home or self-care (01) ==
LOC: MRI 15:01
PROVIDERS: PCP Internal Medicine; Referring Provider Surgery Plastic and Reconstructive Surgery; Visit Provider Surgery Plastic and Reconstructive Surgery
DX: R22.31 Localized swelling, mass and lump, right upper limb (principal)
CPT/HCPCS: 73220; A9575; A4216

== ENCOUNTER 2024-04-07 07:05 | Day surgery (SDC) | payer MEDICARE, MEDICAID, SELFPAY ==
[2024-04-07] VITALS (9 sets, daily range): BP systolic 122–144; BP diastolic 69–82; PULSE 65–96; RESP 16; TEMP 36.2–36.8; O2SAT 92–97; BMI 31.5
--- NOTE | 2024-04-07 06:58 | HP.PCM.SX_ITS ---
HPI - General HPI Narrative HPI (13 Feb 2024) Angelica Wilburn 68 year old female presents to office for consult on growth on the right index finger and a pulsatile mass just in front of the right ear. She states finger has had a lump for years and growing larger overtime, occasionally will cause pain when using it specifically with cutting up food and holding utensils. She also states has had growth on ear for approximately 6 months off and on. No prior treatment. No personal history of blood clots, however both sisters have had multiple blood clots. She has never been a smoker. No headaches or changes in vision. Current encounter, 26 March 2024: Discussed results of MRI which demonstrated likely giant cell tumor. I talked to her about the etiology of this diagnosis and the risks/benefits and alternatives of surgical excision. She would like to proceed with surgery. She is seeing vascular surgery for the temporal artery this week. Does not have any personal or family history of blood clots Current Encounter (DATE OF SURGERY H&P UPDATE): ANGELICA WILBURN is a 68 YO female with a right index finger mass, likely giant cell tumor. I saw and examined the patient this morning in pre-operative holding. We discussed risks and benefits of today's surgery and they would like to proceed. NO CHANGE in health history since last seen and evaluated. Ready to proceed with surgery. [facility] Medical History Osteopenia with high risk of fracture Bilateral impacted cerumen Nasal congestion GERD (gastroesophageal reflux disease) Localized swelling on right hand Localized skin mass, lump, or swelling Urinary urgency Post-menopausal Fibromyalgia Back pain Non-smoker Leg cramps History of pain when walking Hypertension Home Medications ?Medication ?Instructions ?Recorded ?Last Taken ?Type multivitamin with folic acid 400 1 tab PO DAILY 05/20/18 Unknown History mcg tablet (Thera) turmeric 400 mg capsule 400 mg PO DAILY 05/20/18 Unknown History vit B complex-folic acid 400 1 ea PO DAILY 05/20/18 Unknown History mcg-herbal complex no.288 2.5 mg tablet (Balanced B-50 (with alfalfa blend)) [id number] 333 mg-133 1 tab PO DAILY 02/28/23 Unknown History mg-5 mg tablet vision formula 50 + 1 tab PO DAILY 02/28/23 Unknown History omeprazole 40 mg capsule,delayed 40 mg PO DAILY #90 caps 09/10/23 Unknown Rx release denosumab 60 mg/mL subcutaneous 60 mg subcut [id number] #1 mL 01/07/24 Unknown Rx syringe (Prolia) vibegron 75 mg tablet 75 mg PO QDAY 03/26/24 Unknown History cephalexin 500 mg capsule 500 mg PO Q8H 5 days #15 caps 04/07/24 Unknown Rx oxycodone 5 mg tablet 5 mg PO Q8H PRN pain 5 days #10 04/07/24 Unknown Rx tabs Allergy/AdvReac Type Severity Reaction Status Date / Time chocolate flavor Allergy Mild Hives Verified 03/30/24 14:17 orange Allergy Mild Hives Verified 03/30/24 14:17 Family History Father Alcoholism Acute arthritis Sister Cancer breast, cervical Hypertension Aunt Cancer cervical, Diabetes Colon cancer Mother Diabetes Grandfather Diabetes CVA (cerebral vascular accident) Surgical History History of esophagogastroduodenoscopy (EGD) Hx of wisdom tooth extraction Hx of tubal ligation Hx of colonoscopy Social History current occupational status: retired Smoking Status: Never smoker alcohol intake: never substance use type: does not use additional social history: no asa or ibuprofen, no personal hx blood clot Physical Exam Narrative Inspection: Right index finger mass on volar surface of P2. It does not move with tendon excursion. Feels relatively mobile. Motor: Able to bend and extend all MP, PIP, and DIP joints. Sensory: Intact to light touch on the radial and ulnar borders. Vascular: Finger tips are warm and well perfused with <2 second capillary refill. No axillary, epitrochlear/antecubital lymphadenopathy Assessment & Plan Assessment/Plan (1) Finger mass, right: PLAN: INTERVAL H&P PLAN, DATE OF SURGERY: We will proceed with surgery today. I marked her right index finger in pre-operative holding. I talked the patient extensively about the risks of surgery, including bleeding, infection, damage to surrounding structures (finger digital nerves and arteries - possible numbness afterwards and even possible finger loss from necrosis if arteries are injured), surgical site dehiscence and wound formation, need for wound care, need for repeat operations (recurrence - see below), failure to obtain the desired result, DVT/PE, and the risks of anesthesia including . The benefits and alternatives of this surgery were also discussed. All of their questions were answered, and they agreed to proceed with surgery. I spoke with her about hand tumors, notably the possible diagnosis of a giant cell tumor. We talked about how these have a high chance of recurrence (upwards of 50%), and we will have to monitor for recurrence closely if that is the diagnosis. We also talked about damage to the A4 joel (which might be intentional as mass may be from sheath and require removal of this area, which may lead to tendon bowstringing). We also discussed finger stiffness. She was understanding of this and wanted to proceed.
--- NOTE | 2024-04-07 07:21 | PCM.OPRPT ---
Operative Report (Standard) Operative Information Date of Procedure: 04/07/24 Pre-Operative Diagnosis: 1) Right index finger mass Post-Operative Diagnosis: Same Surgery/Procedure Performed: 1) Excision of right index finger mass, 1.2 X 1.6 cm, CPT 45175 transcription specialist: No Type of Anesthesia: General/Supplemental (5 cc of 0.25% Marcaine ) RN Documented Start/Stop Times: Operation Date: 04/07/24 08:50 Case Time Into Pre-Op 04/07/24 07:09 Anesthesia Start 04/07/24 08:05 Into Room 04/07/24 08:05 Procedure Start 04/07/24 08:30 Procedure End 04/07/24 09:11 Anesthesia End 04/07/24 09:15 Out of Room 04/07/24 09:15 Into Recovery 04/07/24 09:18 Procedure Start Time: 08:30 Procedure Stop Time: 09:11 Select all DRAINS/GRAFTS/IMPLANTS that apply: None Estimated Blood Loss: Minimal Specimen collected: Yes Description of specimen(s) removed: Tumor from volar surface of the right index finger Description of surgery: INDICATIONS: Yana Corey is a delightful 68 YO female with a likely giant cell tumor of the right index finger. I talked the patient extensively about the risks of surgery, including bleeding, infection, damage to surrounding structures (finger digital nerves and arteries - possible numbness afterwards and even possible finger loss from necrosis if arteries are injured), surgical site dehiscence and wound formation, need for wound care, need for repeat operations (recurrence - see below), failure to obtain the desired result, DVT/PE, and the risks of anesthesia including . The benefits and alternatives of this surgery were also discussed. All of their questions were answered, and they agreed to proceed with surgery. I spoke with her about hand tumors, notably the possible diagnosis of a giant cell tumor. We talked about how these have a high chance of recurrence (upwards of 50%), and we will have to monitor for recurrence closely if that is the diagnosis. We also talked about damage to the A4 joel (which might be intentional as mass may be from sheath and require removal of this area, which may lead to tendon bowstringing). We also discussed finger stiffness. She was understanding of this and wanted to proceed. OPERATIVE DETAILS: The patient was correctly identified in preoperative holding, and I marked the right index finger (the mass was confirmed, the patient agreed with the site marking). They were taken back to the operating room where they were administered general anesthesia and placed in the supine positioning. Once appropriate level of anesthesia was obtained, the site was prepped and draped in sterile fashion. A tourniquet was applied to the upper arm and the extremity was exsanguinated. It was inflated to 250 mmHg. A 15 blade scalpel was used to make a direct incision over the mass in a Gordo-style incision, extended to midaxial incisions distally/ulnarly and proximally/radially to the mass to help identify the bundles. I first began dissection carefully proximally and distally to the mass, finding the nerve/artery and keeping them safe and identified. I then carefully dissected around the mass and removed it in one piece. There was no stalk/extension to the joint. The wound was irrigated with copious amounts of normal saline. The mass measured 1.2 X 1.6 cm. The mass was sent to pathology. The Tourniquet was deflated and hemostasis obtained with bipolar electrocautery. Attention was then turned to simple closure of the wound, which was performed with interrupted 3-0 Nylon horizontal mattress sutures. Xeroform , Alumafoam, Rahat and coban were placed. The patient tolerated the procedure well and was awakened and taken the PACU in stable condition. POST-OPERATIVE PLAN: Keep splint in place until Friday, 09 Apr 2024, when I will see her in clinic for wound check. Surgical Findings: Well circumscribed fatty-appearing tumor with brown tinge, consistent with possible giant cell tumor. Complications Complications: No Admit VTE Documentation VTE Mechan Device Prophylaxis: SCD's
--- NOTE | 2024-04-07 07:30 | PRE.ANES_ITS ---
ASA Classification* ASA Classification ASA Classification: 2 Assessment & Plan Anesthesia* Anesthesia Assessment Anesthesia Assessment: Discussed sedation and/or anesthesia options, risks, benefits, and alternatives with patient/parents/legal guardian/POA. Questions invited. The patient/parents/legal guardian/POA seems to understand and agrees to proceed with anesthesia plan. Reviewed the physical assessment, medical history, allergy history and patient home medications list prior to surgery/procedure/anesthetic and documented any changes. Performed airway and anesthesia risk assessments. Anesthesia Type Anesthesia Type: General (TIVA. patient with n/v anesthetic gases) Anesthesia Focused Assessment* Airway Assessment Mouth opens: >3 cm Mallampati Score: II Focused Labs Anesthesia Preop lab: CBC WBC 5.8 K/mm3 (4.4-11.0) 03/12/23 14:56 RBC 5.08 M/mm3 (4.2-5.4) 03/12/23 14:56 Hgb 14.4 g/dL (12.0-15.0) 03/12/23 14:56 Hct 44.9 % (37-47) 03/12/23 14:56 Plt Count 262 K/mm3 (150-450) 03/12/23 14:56 CHEMISTRY Potassium 4.1 mmol/L (3.5-5.1) 12/15/23 11:14 Sodium 140 mmol/L (136-145) 12/15/23 11:14 BUN 15 mg/dL (7-18) 12/15/23 11:14 Creatinine 1.03 mg/dL (0.55-1.02) H 12/15/23 11:14 Glucose 102 mg/dL (74-106) 12/15/23 11:14 POC Glucose 98 mg/dL (70-110) 05/20/18 09:58 COAG PT 14.1 SECONDS (11.7-14.9) 05/20/18 09:45 Pre-Assessment Diagnosis/Proposed Procedure Planned Operative Procedure(s): (R) Excision finger cyst right index Anesthesia History Anesthesia History - investigation division captain: Anesthesia History - investigation division captain Hx Hospitalization No 03/30/24 13:13 Any Problems With Anesthesia Yes: PT STATES ISSUES WITH 03/30/24 13:13 THE GAS THEY USED TO PUT HER TO SLEEP IN 1988 Cholinesterase deficiency No 03/30/24 13:13 You/Your Family Experience No 03/30/24 13:13 fever (hyperthermia) with Relationship Recent Exposure to Contagious No 07/08/23 13:13 Disease Does patient have nerve No 03/30/24 13:13 stimulator Patient instructed to have device shut off --Does patient have Pacemaker or ICD? When Was Last Pacemaker Check QUESTION #4 FULL TEXT: You/Your Family Experience fever (hyperthermia) with Anesthesia Last Oral Intake Last Oral intake: Last Oral Intake NPO since Meds taken in AM with sips of water? Meds patient instructed to take am of surgery PONV PONV - investigation division captain: PONV - investigation division captain Female Yes 03/30/24 13:13 HX of Motion Sickness Yes 03/30/24 13:13 HX of N/V After Surgery No 03/30/24 13:13 Non-Smoker Yes 03/30/24 13:13 Duration of Surgery greater No 03/30/24 13:13 than 60 minutes Number of Risk Factors 3 03/30/24 13:13 PONV Score Moderate Risk 03/30/24 13:13 Height & Weight Height & Weight: Anesthesia: Height & Weight Height 5 ft 3 in 03/26/24 15:29 Respiratory Assessment Respiratory Assessment - investigation division captain: Respiratory Tract Infection Hx - investigation division captain Hx Respiratory Tract Infection No 03/30/24 13:13 STOP Sleep Apnea STOP Sleep Apnea - investigation division captain: STOP Sleep Apnea - investigation division captain Hx Hypertension Yes: PT STATES DUE TO PAIN 03/30/24 13:13 IN KNEE Hx Sleep Apnea No 03/30/24 13:13 CPAP BIPAP Do you snore loudly (louder No 03/30/24 13:13 than talking or can be heard Do you often feel tired/ No 03/30/24 13:13 fatigued/ sleepy during daytime? Has anyone observed you stop No 03/30/24 13:13 breathing during sleep? STOP Results Negative 03/30/24 13:13 QUESTION #5 FULL TEXT : Do you snore loudly (louder than talking or can be heard through closed doors)? 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 Specify any problems Hx of Preganancy in last 3 N/A 03/30/24 13:13 Months Nurse Filling Out Transfusion NBUCHER 03/30/24 13:13 & Questions: Date: 03/30/24 03/30/24 13:13 Time: 13:16 03/30/24 13:13 Patient unable to answer at this time (ie. confused, unrespo /Reproduction History /Reproductive History - investigation division captain: /Reproductive Hx- investigation division captain Hx Now Gestational Age (in weeks): EDC: Hx Hx Para Hx Section SAB No 03/30/24 13:13 Active Medications Active Medications: Current Medications Generic Name Dose Route Start Last Admin Trade Name Freq PRN Reason Stop Dose Admin Cefazolin Sodium 2 gm/ N/A 20 mls @ 400 mls/hr 04/07/24 08:50 IV 04/07/24 08:52 PREOP [facility] Medical History Osteopenia with high risk of fracture Bilateral impacted cerumen Nasal congestion GERD (gastroesophageal reflux disease) Localized swelling on right hand Localized skin mass, lump, or swelling Urinary urgency Post-menopausal Fibromyalgia Back pain Non-smoker Leg cramps History of pain when walking Hypertension Home Medications ?Medication ?Instructions ?Recorded ?Last Taken ?Type multivitamin with folic acid 400 1 tab PO DAILY 05/20/18 Unknown History mcg tablet (Thera) turmeric 400 mg capsule 400 mg PO DAILY 05/20/18 Unknown History vit B complex-folic acid 400 1 ea PO DAILY 05/20/18 Unknown History mcg-herbal complex no.288 2.5 mg tablet (Balanced B-50 (with alfalfa blend)) [id number]-[id number]-tger 333 mg-133 1 tab PO DAILY 02/28/23 Unknown History mg-5 mg tablet vision formula 50 + 1 tab PO DAILY 02/28/23 Unknown History omeprazole 40 mg capsule,delayed 40 mg PO DAILY #90 caps 09/10/23 04/07/24 Rx release denosumab 60 mg/mL subcutaneous 60 mg subcut [id number] #1 mL 01/07/24 Unknown Rx syringe (Prolia) vibegron 75 mg tablet 75 mg PO QDAY 03/26/24 Unknown History cephalexin 500 mg capsule 500 mg PO Q8H 5 days #15 caps 04/07/24 Unknown Rx oxycodone 5 mg tablet 5 mg PO Q8H PRN pain 5 days #10 04/07/24 Unknown Rx tabs Allergy/AdvReac Type Severity Reaction Status Date / Time chocolate flavor Allergy Mild Hives Verified 04/07/24 07:24 orange Allergy Mild Hives Verified 04/07/24 07:24 Inhaled Anesthetics (Halogen AdvReac Nausea/Vom/ Verified 04/07/24 07:24 Based) Diarrhea Family History Father Alcoholism Acute arthritis Sister Cancer breast, cervical Hypertension Aunt Cancer cervical, Diabetes Colon cancer Mother Diabetes Grandfather Diabetes CVA (cerebral vascular accident) Surgical History History of esophagogastroduodenoscopy (EGD) Hx of wisdom tooth extraction Hx of tubal ligation Hx of colonoscopy Social History current occupational status: retired Smoking Status: Never smoker alcohol intake: never substance use type: does not use additional social history: no asa or ibuprofen, no personal hx blood clot Review of Systems (Anesthesia) ROS Narrative System reviewed and no additional complaints, except as documented.
[2024-04-07] MEDS: 0.9% Normal Saline (1000mL) 1,000 ML 15 ML IV (07:48)
[2024-04-07] MEDS: Cefazolin 2 GM in Syringe IV (08:05)
--- NOTE | 2024-04-07 08:50 | MASS_PTH ---
PATIENT: ANGELICA WILBURN LOC: [facility] [place] U#:[id number] AGE/SX: 68/F ROOM: RE04/07/[address]: Dr. Blake Lopez MD : 1955 BED: DIS: 04/07/2024 SPEC #: [id number] RECD: 04/07/24 10:19 STATUS: CEASAR DONIS #: [id number] SHILPA: 04/07/24 08:[address]: Blake Lopez DEPT: SURGICAL PATHOLOGY RECD BY: Abdoulaye Guerrier ENTERED: 04/07/24 11:31 SP TYPE: Mass OTHR DR: Dr. 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 SJ.mr 04/08/2024 COMMENT Case has been reviewed in consultation with Dr. Grimaldo who concurs with the above diagnosis. IDC:AM MICROSCOPIC DESCRIPTION Slides are reviewed. GROSS DESCRIPTION Received in fixative is one container labeled with the patient's name and designated Right index finger mass. The specimen consists of a piece of orellana-yellow indurated tissue measuring 1.5 x 1.0 x 0.8cm. Sections reveal orellana-yellow cut surfaces. The entire specimen is submitted in one cassette. DAVID. 04/07/2024 TC:1 CPT:58054
[2024-04-07] MEDS: Bupivacaine 0.25% 30 ML Vial (09:00)
--- NOTE | 2024-04-07 09:20 | PCM.POST.ANE ---
Anesthesia: Postop Eval I Current Vital Signs Temperature: 97.2 F Pulse Rate: 76 Blood Pressure: 130/81 Respiratory Rate: 16 Pulse Ox: 92 Assessment Airway patent: Yes Spontaneous unlabored respirations: Yes nausea: No Vomiting: No Anesthesia Complication: No Fluid Hydration Crystalloid volume administer (ml): 700 Total IV fluid infused: 700 Progress Note Anesthesia document: Postop Eval 1 completed: Yes
--- NOTE | 2024-04-07 09:21 | PCM.POSTANE2 ---
Anesthesia Postop Eval I Sum Postop Eval Completion status Anesthesia document: Postop Eval 1 completed: Yes Anesthesia Postop Eval I Summary Anesthesia Postop Eval I Summary: Anesthesia Postop Eval I: Assessment Summary Airway patent Yes 04/07/24 09:20 Spontaneous unlabored Yes 04/07/24 09:20 respirations Mental status nausea No 04/07/24 09:20 Vomiting No 04/07/24 09:20 Anesthesia Postop Eval I: Fluid Summary Crystalloid volume administer 700 04/07/24 09:20 (ml) Colloids volume administered ( ml) Blood Product volume administered (ml) Total IV fluid infused 700 04/07/24 09:20 Anesthesia Postop Eval I: Summary Notes Anesthesia Complication No 04/07/24 09:20 Anesthesia Complication Comment: Post-operative progress note Anesthesia: Postop Eval II Evaluation Mental status: Awake Pain Level: 0 nausea: No Vomiting: No
[2024-04-07] MEDS: oxyCODONE 5 MG Tablet PO (11:16)
== END 2024-04-07 12:05 | disposition home or self-care (01) ==
LOC: SDC 07:05 → AC 07:07
PROVIDERS: PCP Internal Medicine; Referring Provider Surgery Plastic and Reconstructive Surgery; Visit Provider Surgery Plastic and Reconstructive Surgery
PROC: (CPT 26055; principal; 2024-04-07 08:40)
DX: D48.115 Desmoid tumor of upper extremity and shoulder girdle (principal); K21.9 Gastro-esophageal reflux disease without esophagitis; I10 Essential (primary) hypertension; M65.841 Other synovitis and tenosynovitis, right hand; Z79.899 Other long term (current) drug therapy; M79.7 Fibromyalgia
CPT/HCPCS: 26111; 00400; 88304; A4216; J2405

== ENCOUNTER → 2024-04-22 | Outpatient (CLI) | payer MEDICARE, MEDICAID, SELFPAY ==
--- NOTE | 2024-04-22 13:20 | CT_ITS ---
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 RADIATION DOSAGE (If Supplied By Facility): CTDIvol = ( 25.63 ) mGy, DLP = ( 1500.54 ) mGycm TECHNIQUE: CT angiography was performed with a multi-detector CT scanner. Data acquisition was obtained from the skull base through the vertex following intravenous administration of 100 mL of IV Isovue-370. MIP images were reconstructed from the axial data set. Post-processing of the angiographic images was performed, with multiplanar reformation and 3D reconstruction. Individualized dose optimization techniques were used for this CT. COMPARISON: No relevant priors. FINDINGS: Normal bilateral petrous carotid arteries. There is calcified plaque formation of the right cavernous carotid artery, without a cross-sectional luminal stenosis. Normal left cavernous carotid artery with a normal supraclinoid bifurcation. Normal right A1 segments of the anterior cerebral artery. Normal left A1 segments of the anterior cerebral artery. Normal intact anterior communicating artery (ACOM). Normal bilateral A2 segments of the anterior cerebral arteries. Normal right M1 and M2 segments of the middle cerebral arteries, with a normal M1 bifurcation. Normal left M1 and M2 segments of the middle cerebral arteries, with a normal M1 bifurcation. There is non-visualization of the right posterior communicating artery (PCOM). There is non-visualization of the left posterior communicating artery (PCOM). There is a small atretic right vertebral artery with a dominant left vertebral artery. Normal basilar artery with a normal basilar bifurcation. The visualized bilateral superior cerebellar (SCA) arteries are normal. Normal bilateral P1, P2 and visualized P3 segments of the posterior cerebral arteries. There is no demonstrated aneurysm of the [place]. There is no demonstrated abnormality of the visualized brain. AORTIC ARCH: Normal visualized aortic arch. Normal origins of the brachiocephalic, left common carotid, and left subclavian arteries. RIGHT CAROTID ARTERIES: Normal right common carotid artery (CCA). Normal right common carotid bulb. Normal origin of the right internal carotid (ICA) artery without a hemodynamically significant stenosis. Normal visualized cervical portion of the right internal carotid artery. Normal origin of the right external carotid artery (ECA). LEFT CAROTID ARTERIES: Normal left common carotid artery (CCA). Normal left common carotid bulb. Normal origin of the left internal carotid (ICA) artery without a hemodynamically significant stenosis. Normal visualized cervical portion of the left internal carotid artery. Normal origin of the left external carotid artery (ECA). VERTEBRAL ARTERIES: Normal bilateral vertebral arteries. NECK ANATOMY: Lung apices appear to be clear. The thyroid has a grossly normal appearance. Visualized parotid and submandibular glands have a grossly normal appearance. Nasopharynx, oropharynx, hypopharynx and larynx have a grossly normal appearance. Cervical and upper thoracic vertebral bodies are normal height and alignment. There is a mild enlargement of the right-sided superficial artery on the right with maximum transverse dimension 3.6 mm. 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 IMPRESSION: 1. No CT evidence for hemodynamically significant stenosis or thrombosis of the intracranial arteries. 2. 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 Individualized dose optimization techniques were used for this CT. COMPARISON: CT of the cervical spine dated May 20, 2018. FINDINGS: Normal soft tissue structures. Normal calvarium. There appears to be small extra-axial nodule in left parietal area that is partially ossified and may represent a small meningioma. This measures approximately 10 mm in size. This is unchanged since the previous CT. Normal size ventricles and extra-axial spaces for the patient''s age. Normal white matter tracts of the cerebral hemispheres. Normal basal ganglia and thalami. Normal brainstem. Normal cerebellum. There is no intracranial hemorrhage. There are no findings of an acute ischemic infarction. There is a small right maxillary sinus mucous retention cyst. The paranasal sinuses are otherwise clear. CT/CTA Head AND Neck W/ Contrast IMPRESSION: No CT evidence for mass or acute intracranial hemorrhage. Electronically Signed: Arin Gonzalez MD at 8:42 EST ,
[2024-04-22 13:46] LABS: CREATININE FINGERSTICK < 1.0 mg/dL (0.55-1.02); EGFR FINGERSTICK > 60.0000 mL/min (>60)
== END | disposition home or self-care (01) ==
LOC: CT 13:11
PROVIDERS: PCP Internal Medicine; Referring Provider Physician Assistant; Visit Provider Physician Assistant
DX: I72.8 Aneurysm of other specified arteries (principal)
CPT/HCPCS: 70496; 70498; Q9967

== ENCOUNTER → 2024-04-26 | Outpatient (CLI) | payer MEDICARE, MEDICAID, SELFPAY ==
--- NOTE | 2024-04-26 10:37 | BI_ITS ---
MAMMOGRAPHY - BILATERAL SCREENING REASON FOR EXAM: Female, 68 years old. Routine annual screening examination. PERTINENT HISTORY: Sister with breast cancer. TECHNIQUE: Digital bilateral breast rosario (3D mammographic acquisition) in the CC and MLO projections. 2-D mediolateral oblique (MLO) and craniocaudad (CC) views of both breasts were obtained. CAD: Full Field Digital Mammography with Computer Added Detection was performed. COMPARISON: Comparison is made with prior study dated April 24, 2023. FINDINGS: Breast Composition: The breasts are heterogeneously dense, which may obscure small masses. There are no dominant masses or suspicious calcifications. Stable bilateral fat containing axillary lymph nodes. No other significant abnormalities are identified. There has been no significant change since the prior study. BI/SCRN MAMM (CAD)W/ROSARIO BILAT IMPRESSION: Stable bilateral screening mammogram. Yearly follow-up mammogram recommended. (A) ASSESSMENT CATEGORY: BIRADS Category 2: Benign. A letter regarding these results will be sent to the patient by the facility within 30 days. Approximately 10% of breast cancers are not detected by mammography. A normal mammogram should not delay biopsy of a clinically suspicious abnormality. [id number] Electronically Signed: Brent Garcia MD at 9:49 EST ,
== END | disposition home or self-care (01) ==
LOC: OPBI 10:37
PROVIDERS: PCP Internal Medicine; Referring Provider Internal Medicine; Visit Provider Internal Medicine
DX: Z12.31 Encounter for screening mammogram for malignant neoplasm of breast (principal); Z80.3 Family history of malignant neoplasm of breast
CPT/HCPCS: 77063; 77067

== ENCOUNTER → 2024-06-09 | Outpatient (CLI) | payer MEDICARE, MEDICAID, SELFPAY ==
[2024-06-09 16:42] LABS: Cholesterol 238 mg/dL (200); High Density Lipoprotein 55 mg/dL; Triglycerides 143 mg/dL; Very Low Density Lipoprotein 29 mg/dL (5-40)
== END | disposition home or self-care (01) ==
LOC: BIMLAB 11:24
PROVIDERS: PCP Internal Medicine; Referring Provider Physician Assistant; Visit Provider Physician Assistant
DX: I10 Essential (primary) hypertension (principal)
CPT/HCPCS: 36415; 80061

== ENCOUNTER → 2024-06-24 | Outpatient (CLI) | payer MEDICARE, MEDICAID, SELFPAY ==
--- NOTE | 2024-06-24 12:21 | US_ITS ---
PROCEDURE: PELVIC W/ TRANSVAGINAL REASON FOR EXAM: Uterine mass. Abnormal CT scan. TECHNIQUE: Transabdominal and transvaginal pelvic ultrasound COMPARISON: None. FINDINGS: Measurements: Uterus: 11.5 cm x 10.1 cm x 6.1 cm. Endometrial Thickness: 3.64 cm. Heterogeneous. Right Ovary: Not visualized. Left Ovary: 2.3 cm x 2.5 cm x 1.2 cm. TRANSABDOMINAL: Uterus: Normal size, myometrial echotexture, and contour. Endometrium: Marked thickening of the endometrium. It measures 3.6 cm. It is heterogeneous. Right ovary: Not visualized. Left ovary: Normal size and echotexture. No large pelvic mass identified. Transvaginal sonography was performed to better visualize the endometrium. TRANSVAGINAL: Uterus: Anteverted. Normal contour and myometrial echotexture. Endometrium: Abnormally thickened endometrium measuring 3.6 cm. Heterogeneous echotexture. Right ovary: Not visualized. Left ovary: Normal size and echotexture. Other adnexal findings: None. Cul-de-sac: No free intraperitoneal fluid identified. No tenderness. US/Pelvic w/ Transvaginal IMPRESSION: Heterogeneous thickening of the endometrium as described. Clinical correlation recommended. Reading Location: [facility]
== END | disposition home or self-care (01) ==
LOC: OPUS 12:20
PROVIDERS: PCP Internal Medicine; Referring Provider Internal Medicine; Visit Provider Internal Medicine
DX: N85.8 Other specified noninflammatory disorders of uterus (principal); R93.89 Abnormal findings on diagnostic imaging of other specified body structures
CPT/HCPCS: 76830; 76856

== ENCOUNTER → 2024-08-11 | Outpatient (CLI) | payer MEDICARE, MEDICAID, SELFPAY ==
--- NOTE | 2024-08-11 14:06 | VDLE_ITS ---
Reason For Study Reason For Study: LLE Swelling RIGHT LEFT FV is compressible, spontaneous, phasic, competent GSV is normal. and demonstrates normal augmentation. CFV is compressible, spontaneous, phasic, competent, Procedure and demonstrates normal augmentation. This is a venous duplex using B-mode, color flow and FV is compressible, spontaneous, phasic, competent spectral Doppler. and demonstrates normal augmentation. Exam performed in department. POP V is compressible, spontaneous, phasic, competent The exam was diagnostic. and demonstrates normal augmentation. A preliminary report was called and/or faxed to T/[facility] Trunk is compressible. [facility]. PTV is compressible. LT PerV is compressible. VL/Venous Duplex US, Unilateral Interpretation Summary Deep veins of the left lower extremity are patent and compressible segmentally. There is no evidence of left lower extremity deep vein thrombosis. Valvular competence appears intact within the p roximal deep venous system on the left . The left great saphenous vein appears patent and compressible segmentally. The right femoral vein is patent and compressible. Ordering Physician: Uche Riley Referring Physician: Alcira Ponce Performed By: Juan Last RVT
--- NOTE | 2024-08-11 16:58 | EMB_PTH ---
PATIENT: ANGELICA WILBURN LOC: [facility] U#:[id number] AGE/SX: 69/F ROOM: RE08/11/[address]: Dr. Uche Riley MD : 1955 BED: DIS: 08/11/2024 SPEC #: [id number] RECD: 08/12/24 09:08 STATUS: CEASAR REZaida #: [id number] SHILPA: 08/11/24 16:[address]: Natasha Cruz NP DEPT: SURGICAL PATHOLOGY RECD BY: Kirk Polanco ENTERED: 08/12/24 09:08 SP TYPE: ENDOM BX/C OTHR DR: MD Dr. Uche Quinn MD Tissues: A - Endometrium, NOS Procedures: Surgery Specimen Level IV Comments: @ Ordering doctor for SUIV edited from to [email or web address] @ by LI at 08/12/24 0909 @ Submitting doctor edited from to [email or web address] @ by LI at 08/12/24 0909 HEADER OPERATION: Endometrial biopsy PRE-OP DIAGNOSIS: Thickened endometrium TISSUE SUBMITTED: A- Endometrial lining MICROSCOPIC DIAGNOSIS A. Endometrium, biopsy: * Few fragments of secretory-type endometrium. * Scant benign endocervical mucosa. MICROSCOPIC DESCRIPTION Slides are reviewed. GROSS DESCRIPTION A. Received in formalin in a container labeled with the patient's name, date of , and endometrial lining is a scant amount of soft tissue submitted entirely for cellblock preparation in . [facility] 08-12-2024 CPT:[id number]
== END | disposition home or self-care (01) ==
PROVIDERS: PCP Internal Medicine; Referring Provider Specialist; Visit Provider Specialist
DX: R22.42 Localized swelling, mass and lump, left lower limb (principal)
CPT/HCPCS: 88305; 93971